=== PATIENT | male | born 2000 | race Caucasian/White ===

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

== ENCOUNTER 2020-03-04 16:07 | Outpatient (REF) | payer MEDICAID, SELFPAY ==
[2020-03-08 15:08] LABS: Patient Race White; SARS-CoV-2 RNA Undetected (Undetected); SARS-CoV-2 Specimen Source Nasal
== END 2020-03-04 16:27 ==
LOC: LBN 16:07
PROVIDERS: PCP Pediatrics; Visit Provider Nurse Practitioner Family
DX: Z20.828 Contact with and (suspected) exposure to other viral communicable diseases (principal)
CPT/HCPCS: U0003

== ENCOUNTER 2022-07-12 09:07 | Emergency (ER) | payer MEDICAID, SELFPAY ==
[2022-07-12 09:12] VITALS: BP 134/62; PULSE 86; RESP 17; TEMP 36.3; O2SAT 97
--- NOTE | 2022-07-12 09:15 | DI.CT_ITS ---
Exam(s) CT CHEST/ABD/PEL W CT THORACIC LUMBAR SPINE REC EXAM: CT CHEST/ABD/PEL W CLINICAL HISTORY: Trauma TECHNIQUE: Imaging Protocol: Axial computed tomography images with coronal and sagittal reformatted images were created and reviewed CONTRAST MATERIAL: Intravenous: Omnipaque 350 contrast volume:100 mL Oral: None FINDINGS: CHEST: Tracheobronchial tree: Patent where visualized. Pulmonary parenchyma: No consolidation or dominant measurable mass. No architectural distortion. Visualized thyroid gland: Unremarkable. Mediastinum and Earline: No dominant adenopathy or fluid collection. The esophagus is unremarkable. The re is soft tissue layering in the anterior mediastinum consistent with residual thymic tissue. Pleura: No effusion or pneumothorax. Heart: The heart is not dilated. No coronary artery calcifications are seen. No pericardial effusion. Pulmonary arteries: Due to the bowling time is, the pulmonary arteries are inadequately opacified for evaluation of pulmonary emboli. Aorta: Thoracic aorta non-dilated. Lymph nodes: Within normal limits. Soft tissues: Unremarkable. Bones:Within normal limits for the patient's age. Thoracic spine CT recons: No acute fracture or dislocation is present. ABDOMEN: Liver: Normal density. There is a tiny hypodensity in the left lobe of the liver. It is too small fo r further characterization but likely reflects a small cyst. Portal, Superior Mesenteric, and Splenic Veins: Unremarkable. Gallbladder and Biliary Tract: No radiodense calculus or dilation. Pancreas: Normal density, no abnormal calcifications or inflammatory process. Spleen: Normal. Adrenals: No masses seen. Kidneys: Normal size, contour and axis. No radiodense stones or obstructive uropathy. No masses seen. Abdominal Aorta: Abdominal portion non-dilated. Bowel: No obstruction or bowel wall thickening. No evidence of appendicitis. Peritoneal Cavity: No ascites, collection or mesenteric inflammatory response. No free air. Lymph Nodes: Within normal limits. Bones: Within normal limits for the patient's age. Soft Tissues: Unremarkable. PELVIS: Bladder: Symmetric distention, no gross wall thickening. Reproductive Organs: Unremarkable as visualized. Lymph Nodes: Within normal limits. Bones: Within normal limits. Lumbar spine CT recons: No acute fracture or subluxation. IMPRESSION: 1. No acute chest, abdominal or pelvic injury. 2. No evidence of an acute fracture or subluxation in the thoracic or lumbar spine. 3. Findings were discussed with Reina Murphy at 10:40 a.m. on 07/12/2022. RADIATION DOSE DELIVERED: 1479.93 mGy.cm Total DLP DATA REPOSITORY: All CT scans at this facility are submitted to the National Radiology Data Registry (NRDR) Dose Index Registry (DIR) with the [employer] (A[employer]). RADIATION OPTIMIZATION: All CT scans at this facility use at least one of these dose optimization te chniques: automated exposure control; mA and/or kV adjustment per patient size (includes targeted exa ms where dose is matched to clinical indication); or iterative reconstruction.
--- NOTE | 2022-07-12 09:32 | W.ED.GENAD ---
Discharge Plan Disposition Patient Disposition: Home Discharge Details Clinical Impression: Low back sprain, Fall (on) (from) other stairs and steps, initial encounter Primary Care Provider: Susan Toyn ED Provider: Reina Murphy Home Meds and New Rx's Prescriptions: Continued escitalopram oxalate 5 mg tablet 5 mg PO DAILY Qty: 30 0RF Rx Instructions: take one at hs with the 10 mg tablet escitalopram oxalate 10 mg tablet 10 mg PO DAILY Qty: 30 0RF Rx Instructions: take one tablet daily with the 5 mg acetaminophen [Tylenol 8 Hour] 650 mg tablet extended release 650 mg PO Q6H PRN PRN (Reason: fever or pain) Qty: 1 0RF ibuprofen 600 mg tablet 600 mg PO QID PRN (Reason: fever or pain) Qty: 30 0RF Discharge Instructions Instructions: Back Pain (ED) Additional Instructions: Please use the muscle relaxers as directed. They may make you sleepy. You may also try lidocaine patches which you can get [id number]. Alternate ice and heat. Please take Tylenol or Ibuprofen with food every 4-6 hours as needed for pain and swelling. Stand Alone Forms: Work Release Referrals: Susan Tony, HOSPITALIST PROGRAM DIRECTOR [Primary Care Provider] - 3 days Discharge Data Discharge Date/Time-TO BE ENTERED AT DEPARTURE: 07/12/22 10:59 Medical Decision Making 22-year-old male here status post a fall down approximately 15 stairs 2 days ago. Patient reports that he stood up became dizzy near syncope and vomited. He presents with left flank pain and midline L-spine tenderness with palpation. He does have a healing abrasion noted to his left posterior flank. Considered x-rays however due to mechanism and report of near syncope and vomiting at the time of injury decided to draw blood and do a CT scan with recon on the T and L-spine. Gram of Tylenol IV ordered. CT results within normal limits, labs within normal limits, patient remained hemodynamically stable throughout the remainder of stay. This text was generated using [employer] system, please disregard any oddities of phrase or misspellings. Lab Data Lab results reviewed: Yes I reviewed the patient's lab results. Labs: Laboratory Tests Range/Units 07/12/22 07/12/22 07/12/22 09:36 09:45 09:45 WBC (4.4-10.8) 10^3/uL 5.57 RBC (4.36-5.78) 10^6/uL 5.05 Hgb (13.5-17.5) g/dL 15.6 Hct (40.0-50.0) % 45.5 MCV (80-95) fL 90 MCH (27.0-33.0) pg 30.9 MCHC (32.0-36.0) % 34.3 RDW (11.8-14.1) % 11.9 Plt Count (130-400) 10^3/uL 192 MPV (8.0-11.0) fL 10.4 Immature Gran % 0.0 Neutrophils % 62.2 Lymphocytes % 30.5 Monocytes % 5.6 Eosinophils % 1.3 Basophils % 0.4 Nucleated RBC % (0.0-0.3) % 0.0 Absolute Neutrophils (1.2-6.7) 10^3/uL 3.47 Absolute Lymphocytes (1.2-3.4) 10^3/uL 1.70 Absolute Monocytes (0.1-0.8) 10^3/uL 0.31 Absolute Eosinophils (0.0-0.7) 10^3/uL 0.07 Absolute Basophils (0.0-0.2) 10^3/uL 0.02 Sodium (136-145) mmol/L 142 Potassium (3.5-5.1) mmol/L 4.2 Chloride (98-107) mmol/L 106 Carbon Dioxide (21.0-32.0) mmol/L 31.7 Anion Gap (3-11) mmol/L 4.3 BUN (7-18) mg/dL 20 H Creatinine (0.70-1.30) mg/dL 1.0 Est GFR (CKD-EPI 2020) (mL/min/1.73m2) 108.46 Glucose (74-106) mg/dL 123 H Calcium (8.5-10.1) mg/dL 8.9 Total Bilirubin (0.2-1.0) mg/dL 0.4 AST (15-37) U/L 33 ALT (16-63) U/L 26 Alkaline Phosphatase (46-116) U/L 104 Total Protein (6.4-8.2) g/dL 7.3 Albumin (3.4-5.0) g/dL 4.2 Lipase (16-77) U/L 19 Urine Color Cancelled Urine Clarity Cancelled Urine pH Cancelled Ur Specific Mason Cancelled Urine Protein Cancelled Urine Ketones Cancelled Urine Blood Cancelled Urine Nitrite Cancelled Urine Bilirubin Cancelled Urine Urobilinogen Cancelled Ur Leukocyte Esterase Cancelled Urine Glucose Cancelled HPI General Mode of arrival: ambulatory. Date/Time Provider Initiated Documentation: 07/12/22 09:08. Limitations to Documentation: no limitations. Information obtained by: patient, RN notes reviewed and old records reviewed. HPI Narrative: 22-year-old male here status post a fall down approximately 15 stairs 2 days ago. Patient reports that he stood up became dizzy near syncope and vomited. He presents with left flank pain and midline L-spine tenderness with palpation. He does have a healing abrasion noted to his left posterior flank. Denies any abdominal pain no problems urinating. Related Data Home Medications Medication Instructions Recorded Confirmed acetaminophen 650 mg 650 mg PO Q6H PRN PRN fever or 01/08/18 07/12/22 tablet,extended release (Tylenol 8 pain #1 tab Hour) ibuprofen 600 mg tablet 600 mg PO QID PRN fever or pain 01/08/18 07/12/22 #30 tabs escitalopram oxalate 10 mg tablet 10 mg PO DAILY #30 tabs 07/06/22 07/12/22 escitalopram oxalate 5 mg tablet 5 mg PO DAILY #30 tabs 07/06/22 07/12/22 Previous Rx's Medication Instructions Recorded acetaminophen 650 mg 650 mg PO Q6H PRN PRN fever or 01/08/18 tablet,extended release (Tylenol 8 pain #1 tab Hour) ibuprofen 600 mg tablet 600 mg PO QID PRN fever or pain 01/08/18 #30 tabs escitalopram oxalate 10 mg tablet 10 mg PO DAILY #30 tabs 07/06/22 escitalopram oxalate 5 mg tablet 5 mg PO DAILY #30 tabs 07/06/22 Allergies Allergy/AdvReac Type Severity Reaction Status Date / Time No Known Allergies Allergy Verified 07/12/22 09:15 General Stated Complaint: Orthopedic JESE: 4 Review of Systems All systems reviewed & are unremarkable except as noted in HPI and below Musculoskeletal Musculoskeletal: Reports as per HPI, Reports abnormal gait, Reports back pain and Reports stiffness Neurologic Neurologic: Reports abnormal gait PFSH All Active Problems Low back sprain (Acute) Fall (on) (from) other stairs and steps, initial encounter (Acute) Anxiety (Chronic) Low back pain radiating to right leg (Acute) Low back pain (Acute) Nasal congestion (Acute) Pharyngitis (Acute) Encounter for screening laboratory testing for COVID-19 virus (Acute) Encounter for postoperative care (Acute) DVT prophylaxis (Acute) Acute appendicitis (Acute) Tobacco use (Acute) Medical History Left wrist fracture salter II radius and ulna with closed reduction Low back pain radiating to right lower extremity Low back pain radiating to right lower extremity (08/29/16) Nocturnal enuresis Routine child health exam (12/18/12) Surgical History Fracture, Closed Treatment left wrist laminectomy/discectomy 10/19/16 L5-S1 Family History Mother Anxiety Depression Herniated lumbar intervertebral disc requiring 3 surgies Father Essential hypertension Hyperlipidemia Other Essential hypertension P UNCLE, PGF Heart disease Neoplasm Sister ADHD treated w/ ritalin Other Diabetes Social History Smoking/Tobacco Use Status: Current every day Tobacco Type: e-cigarettes Smoking risk assessment performed?: Yes Alcohol Intake: never Drug use: Daily Substance use type: marijuana Do you feel safe in your relationship?: Yes Exam Narrative Exam Narrative: General: Well Developed, Awake and Alert, conversant. Skin: Warm and Dry HEENT: Head: No palpable deformities, Normocephalic Eyes: Pupils PERRLA, EOM's intact. No periorbital eccymosis or step off Ears: Canal patent. Tympanic membranes are clear . No brandon's sign, no hemptympanum. Nose/Face: Atraumatic. Facial bones nontender to palpation and stable with manipulation. Mouth/Throat: No intraoral trauma. Teeth and mandible are intact. Neck: No midline tenderness, no step off, no deformity to palpation of C-spine. Trachea midline. Chest: No surface trauma. Nontender without crepitus or deformity. Lungs clear to ausculatation bilaterally. Heart: RRR, no rubs, murmurs or gallop. Abdomen:, ecchymosis, or surface trauma. Nondistended. Nontender to palpation no guarding, rebound, or rigidity. Pelvis: Nontender to palpation and stable to compression. Femoral pulses strong and equal. Healing abrasion noted to his left posterior flank with tenderness, L-spine tender with palpation. Extremities: no surface trauma. Sensation intact. Peripheral pulses intact and equal. Neuro: ANO x4, GCS 15, cranial nerves II through XII intact. Motor and sensory exam nonfocal. Reflexes are symmetric. Course Vital Signs Vital signs: Vital Signs Temperature 36.3 C L 07/12/22 09:12 Pulse 86 07/12/22 09:12 Respiratory Rate 17 07/12/22 09:12 Blood Pressure 134/62 07/12/22 09:12 Pulse Oximetry 97 07/12/22 09:12 Temperature 36.3 C L 07/12/22 09:12 Pulse 86 07/12/22 09:12 Respiratory Rate 17 07/12/22 09:12 Respiratory Effort Normal 07/12/22 09:14 Blood Pressure 134/62 07/12/22 09:12 Blood Pressure Position Sitting 07/12/22 09:12 Pulse Oximetry 97 07/12/22 09:12 Oxygen Delivery Method Room Air 07/12/22 09:12 Oxygen Flow Rate 0 07/12/22 09:12 Pain Level 8 07/12/22 09:18
[2022-07-12 09:58] LABS: Absolute Basophil Count 0.02 10^3/uL (0.0-0.2); Absolute Eosinophil Count 0.07 10^3/uL (0.0-0.7); Absolute Monocyte Count 0.31 10^3/uL (0.1-0.8); Absolute Neutrophil Count 3.47 10^3/uL (1.2-6.7); Basophils % 0.4; Eosinophils % 1.3; HCT 45.5 % (40.0-50.0); HGB 15.6 g/dL (13.5-17.5); Lymphocytes % 30.5; MCH 30.9 pg (27.0-33.0); MCHC 34.3 % (32.0-36.0); MCV 90 fL (80-95); MPV 10.4 fL (8.0-11.0); Monocytes % 5.6; Neutrophils % 62.2; Platelet Count 192 10^3/uL (130-400); RBC 5.05 10^6/uL (4.36-5.78); RDW 11.9 % (11.8-14.1); RDW-SD 39.1 fL; WBC 5.57 10^3/uL (4.4-10.8)
[2022-07-12 10:06] LABS: ALT 26 U/L (16-63); AST 33 U/L (15-37); Albumin 4.2 g/dL (3.4-5.0); Alkaline Phosphatase 104 U/L (46-116); Anion Gap 4.3 mmol/L (3-11); BUN 20 mg/dL (7-18); Bilirubin, Total 0.4 mg/dL (0.2-1.0); CO2 31.7 mmol/L (21.0-32.0); Calcium 8.9 mg/dL (8.5-10.1); Chloride 106 mmol/L (98-107); Estimated GFR 108.46 (mL/min/1.73m2); Glucose 123 mg/dL (74-106); Lipase 19 U/L (16-77); Potassium 4.2 mmol/L (3.5-5.1); Sodium 142 mmol/L (136-145); Total Protein 7.3 g/dL (6.4-8.2)
[2022-07-12] MEDS: Omnipaque 350 MG/ML 500 ML BTL-Imaging package 100 ML IJ (10:06)
[2022-07-12] MEDS: Normal Saline - Diluent 50 ML VIAL IJ (10:07)
[2022-07-12] MEDS: Acetaminophen 500 MG TAB 1000 MG PO (10:45)
[2022-07-12] MEDS: Lidocaine 5% Patch 1 PATCH TP (10:46)
[2022-07-12] MEDS: Cyclobenzaprine 10 MG TAB, 3 TABS/BTL PO (10:46)
[2022-07-12 10:59] VITALS: BP 120/67; PULSE 66; RESP 16; TEMP 37; O2SAT 99
== END 2022-07-12 10:59 | disposition home or self-care (01) ==
PROVIDERS: Emergency Provider Registered Nurse Emergency; PCP Nurse Practitioner Family
DX: S33.5XXA Sprain of ligaments of lumbar spine, initial encounter (principal); S30.811A Abrasion of abdominal wall, initial encounter; R42 Dizziness and giddiness; R55 Syncope and collapse; R11.10 Vomiting, unspecified; W10.9XXA Fall (on) (from) unspecified stairs and steps, initial encounter
CPT/HCPCS: 36415; 74177; 80053; 83690; 96374; 99285; 71260; 81003; 85025; 99284

== ENCOUNTER 2022-09-29 13:05 | Outpatient (REF) | payer OTHER, MEDICAID, SELFPAY ==
[2022-09-29 15:15] LABS: HCT 45.9 % (40.0-50.0); HGB 15.9 g/dL (13.5-17.5); MCH 31.2 pg (27.0-33.0); MCHC 34.6 % (32.0-36.0); MCV 90 fL (80-95); MPV 10.9 fL (8.0-11.0); Platelet Count 212 10^3/uL (130-400); RDW 11.6 % (11.8-14.1); RDW-SD 38.4 fL
[2022-09-29 16:11] LABS: Ferritin 122 ng/mL (26-388)
[2022-10-03 11:21] LABS: HIV-1/2 Ag & Ab Screen Negative (Negative)
[2022-10-03 11:31] LABS: Hepatitis C Ab w Rflx HCV PCR Negative (Negative)
== END 2022-09-29 13:06 | disposition home or self-care (01) ==
LOC: NCHCN 13:05
PROVIDERS: PCP Nurse Practitioner Family; Visit Provider Family Medicine
DX: Z86.2 Personal history of diseases of the blood and blood-forming organs and certain disorders involving the immune mechanism (principal); Z11.59 Encounter for screening for other viral diseases; Z11.4 Encounter for screening for human immunodeficiency virus [HIV]
CPT/HCPCS: 85027; 86803; 87389; 82728

== ENCOUNTER 2023-06-22 18:08 | Outpatient (REF) | payer MEDICAID, SELFPAY ==
[2023-06-24 16:16] LABS: Chlamydia Result Negative (Negative); GC Result Negative (Negative)
== END 2023-06-22 18:09 | disposition home or self-care (01) ==
LOC: NCHCN 18:08
PROVIDERS: PCP Nurse Practitioner Family; Visit Provider Family Medicine
DX: Z86.2 Personal history of diseases of the blood and blood-forming organs and certain disorders involving the immune mechanism (principal)
CPT/HCPCS: 87491; 87591